=== PATIENT | male | born 1995 | race Caucasian/White ===

== ENCOUNTER 2021-10-10 05:28 | Inpatient (IN) | payer MEDICARE, MEDICAID ==
[~2021-10-10] VITALS: Ht 182.9 cm; Wt 95.4 kg
[~2021-10-10 05:28] MED LIST: RINGERS SOLUTION,LACTATED 1,000 ML IV ONE
[2021-10-10] MEDS ORDERED: RINGERS SOLUTION,LACTATED 1,000 ML IV ONE (05:30)
[2021-10-10 05:46] LABS: COVID AG,FIA SOURCE NASAL SWAB
[2021-10-10] MEDS ORDERED: BUPIVACAINE LIPOSOME/PF 1.3%-13.3MG/ML SUSPENSION 20 ML VIAL INJ ONE (06:00)
[2021-10-10] MEDS ORDERED: MICROFIBRILLAR COLLAGEN 1 GM PACKAGE TP ONE (06:03)
[2021-10-10] MEDS ORDERED: BUPIVACAINE HCL/PF 0.25% 30 ML VIAL ONE (06:03)
[2021-10-10] MEDS ORDERED: SODIUM CHLORIDE 0.9% 1,000 ML ONE (06:03)
[2021-10-10] MEDS ORDERED: MUPIROCIN CALCIUM 2% 22 GM OINTMENT ONE (06:03)
[2021-10-10 06:13] LABS: GLUCOMETER DEV NAME(LOC) SDS.; GLUCOSE,POINT OF CARE 193 MG/DL (70-110)
[2021-10-10 06:15] LABS: BASOPHILS % (AUTO) 0.8 % (0.0-2.0); HEMATOCRIT 49.8 % (41-53); HEMOGLOBIN 16.6 g/dL (13.5-17.5); LYMPHOCYTES # (AUTO) 3.3 K/uL (1.0-4.8); LYMPHOCYTES % (AUTO) 33.3 % (22.0-44.0); MEAN CORPUSCULAR HGB CONC 33.3 G/dL (31.0-37.0); MEAN CORPUSCULAR VOLUME 93 fL (80-100); MONOCYTES # (AUTO) 1.1 K/uL (0.1-1.0); MONOCYTES % (AUTO) 11.1 % (2.0-9.0); NEUTROPHILS # (AUTO) 5.2 K/uL (1.8-7.7); NEUTROPHILS % (AUTO) 51.8 % (40.0-70.0); RED BLOOD CELL COUNT(AUTO) 5.36 MIL/uL (4.50-5.90); RED CELL DISTRIBUTION WIDTH 14.1 % (11.5-14.5)
[2021-10-10 06:24] LABS: ANION GAP 8 mmol/L (8-16); CALCIUM, TOTAL 9.4 mg/dL (8.8-10.5); CARBON DIOXIDE 28 mmol/L (22-29); CHLORIDE 103 mmol/L (98-107); CREATININE 0.77 mg/dL (0.60-1.30); GLOMERULAR FILTR. RATE CALC > 60 mL/min (>60); GLUCOSE,RANDOM 227 mg/dL (70-110); SODIUM SERUM 139 mmol/L (136-145); UREA NITROGEN, BLOOD 20 mg/dL (7-18)
[2021-10-10] MEDS ORDERED: PIOG30TA10 PO (06:27)
[2021-10-10] MEDS ORDERED: PANT-31 PO (06:27)
[2021-10-10] MEDS ORDERED: GABA-1181 PO (06:27)
[2021-10-10] MEDS ORDERED: TRAZ-252 PO (06:27)
[2021-10-10] MEDS ORDERED: BACL10TA PO (06:27)
[2021-10-10 06:29] LABS: ALANINE AMINOTRANSFERASE 162 U/L (12-78); ALBUMIN 3.5 g/dL (3.4-5.0); ALKALINE PHOSPHATASE 104 U/L (46-116); ASPARTATE AMINOTRANSFERASE 59 U/L (15-37); BILIRUBIN,TOTAL 0.3 mg/dL (0.1-1.0); TOTAL PROTEIN, SERUM 8.6 g/dL (6.4-8.2)
[2021-10-10] MEDS ORDERED: IOHEXOL 240 MG/ML 20 ML VIAL ONE (06:37)
[2021-10-10] MEDS ORDERED: MINERAL OIL/PETROLATUM,WHITE PF 3.5 GM OPHTHALMIC OINTMENT ONE (06:40)
[2021-10-10 06:42] LABS: INR 1.1 (0.9-1.1); PROTHROMBIN TIME 11.9 SEC (9.4-11.6)
[2021-10-10 06:44] LABS: PLATELET COUNT (AUTO) 348 K/uL (150-450)
[2021-10-10] MEDS ORDERED: VANCOMYCIN HCL 1 GM/VIAL ONE ×3 (06:48→07:03)
[2021-10-10] MEDS ORDERED: SODIUM CL IRRIG SOLN BAG 3,000 ML IRRIG ONE (06:48)
[2021-10-10] MEDS ORDERED: LIDOCAINE ID ONE (07:00)
[2021-10-10] MEDS ORDERED: CeFAZolin 2 GM/DEXTROSE 50 ML IV ONE (07:00)
[2021-10-10] MEDS ORDERED: [UNRECOGNIZED DRUG - OTHER] ID ONE (07:00)
[2021-10-10] MEDS ORDERED: FentaNYL CITRATE PF 100 MCG/2 ML VIAL IVP PRN (08:45)
[2021-10-10] MEDS ORDERED: HYDROmorphone 2 MG/ML VIAL IVP PRN (08:45)
[2021-10-10] MEDS ORDERED: MEPERIDINE-PF 25 MG/ML VIAL IVP PRN (08:45)
[2021-10-10] MEDS ORDERED: INSU200I4 SQ (11:04)
[2021-10-10] MEDS ORDERED: INSU100I3 SQ (11:04)
[2021-10-10] MEDS ORDERED: LEVE500T20 PO (11:04)
[2021-10-10] MEDS ORDERED: HYDROmorphone 2 MG/ML VIAL IVP ONE (12:00)
[2021-10-10] MEDS ORDERED: 0.9% SODIUM CHLORIDE 10 ML VIAL IVP ONE (12:00)
[2021-10-10] MEDS ORDERED: KETOROLAC TROMETHAMINE 60 MG/2 ML VIAL IM ONE (12:00)
[2021-10-10] MEDS ORDERED: PROPOFOL 1% 20 ML VIAL IVP ONE (12:00)
[2021-10-10] MEDS ORDERED: FentaNYL CITRATE PF 100 MCG/2 ML VIAL IVP ONE (12:00)
[2021-10-10] MEDS ORDERED: DEXAMETHASONE SOD PHOS 4 MG/ML VIAL IVP ONE (12:00)
[2021-10-10] MEDS ORDERED: MIDAZOLAM HCL 2 MG/2 ML VIAL IVP ONE (12:00)
[2021-10-10] MEDS ORDERED: ONDANSETRON HCL 4 MG/2 ML VIAL IVP ONE (12:00)
[2021-10-10] MEDS ORDERED: ROCURONIUM BROMIDE 10 MG/ML 5 ML VIAL IVP ONE (12:00)
[2021-10-10] MEDS ORDERED: LIDOCAINE/PF 2% 5 ML VIAL IM ONE (12:00)
[2021-10-10] MEDS ORDERED: DEXTROSE 50%-WATER 25 GM/50 ML SYRINGE IVP PRN (12:15)
[2021-10-10] MEDS ORDERED: MAGNESIUM HYDROXIDE SUSPENSION 30 ML UDCUP PO PRN (12:15)
[2021-10-10] MEDS ORDERED: ONDANSETRON HCL 4 MG/2 ML VIAL IVP PRN (12:15)
[2021-10-10 13:00] VITALS: BP 124/90
[2021-10-10 14:26] LABS: GLUCOMETER DEV NAME(LOC) 6N.1; GLUCOSE,POINT OF CARE 191 MG/DL (70-110)
[2021-10-10 16:00] VITALS: BP 122/64
[2021-10-10] MEDS ORDERED: GABAPENTIN 300 MG CAPSULE PO SCH (16:00)
[2021-10-10] MEDS: CeFAZolin 2 GM/DEXTROSE 50 ML IV SCH ×2 (16:22→23:11)
[2021-10-10] MEDS: INSULIN LISPRO 100 UNITS/ML SQ PRN ×2 (17:34→20:43)
[2021-10-10] MEDS: OxyCODONE HCL/ACETAMINOPHEN 5-325 MG TABLET PO PRN (18:40)
[2021-10-10] MEDS: OXYGEN THERAPY IH SCH (20:00)
[2021-10-10 20:11] VITALS: BP 116/69
[2021-10-10] MEDS: DOCUSATE SODIUM 100 MG CAPSULE PO SCH (20:29)
[2021-10-10] MEDS: TraZODone HCL 50 MG TABLET PO PRN (20:29)
[2021-10-10] MEDS: LevETIRAcetam 500 MG TABLET PO SCH (20:29)
[2021-10-10] MEDS: BACLOFEN 10 MG TABLET PO SCH (20:30)
[2021-10-10] MEDS: GABAPENTIN 300 MG CAPSULE PO SCH (20:30)
[2021-10-10 20:31] LABS: GLUCOMETER DEV NAME(LOC) 6N.1; GLUCOSE,POINT OF CARE 243 MG/DL (70-110)
[2021-10-10 20:31] LABS: GLUCOMETER DEV NAME(LOC) 6N.1; GLUCOSE,POINT OF CARE 242 MG/DL (70-110)
[2021-10-10] MEDS: INSULIN DEGLUDEC 200 UNIT/ML SQ SCH (20:31)
[2021-10-11 04:58] VITALS: BP 116/67
[2021-10-11 05:41] LABS: GLUCOMETER DEV NAME(LOC) 6N.1; GLUCOSE,POINT OF CARE 194 MG/DL (70-110)
[2021-10-11] MEDS: INSULIN LISPRO 100 UNITS/ML SQ PRN ×4 (05:59→20:34)
[2021-10-11] MEDS: CeFAZolin 2 GM/DEXTROSE 50 ML IV SCH ×3 (06:38→23:04)
[2021-10-11] MEDS: OxyCODONE HCL/ACETAMINOPHEN 5-325 MG TABLET PO PRN ×3 (06:59→20:08)
[2021-10-11 08:00] VITALS: BP 124/69
[2021-10-11] MEDS: LevETIRAcetam 500 MG TABLET PO SCH ×2 (08:11→20:03)
[2021-10-11] MEDS: ENOXAPARIN SODIUM 40 MG/0.4 ML PF SYRINGE SQ SCH (08:11)
[2021-10-11] MEDS: BACLOFEN 10 MG TABLET PO SCH ×3 (08:11→20:03)
[2021-10-11] MEDS: DOCUSATE SODIUM 100 MG CAPSULE PO SCH ×2 (08:12→20:03)
[2021-10-11] MEDS: FAMOTIDINE 20 MG TABLET PO SCH (08:12)
[2021-10-11] MEDS: GABAPENTIN 300 MG CAPSULE PO SCH ×3 (08:12→20:03)
[2021-10-11] MEDS: OXYGEN THERAPY IH SCH (08:12)
[2021-10-11] MEDS: INSULIN DEGLUDEC 200 UNIT/ML SQ SCH ×2 (08:21→20:34)
[2021-10-11] MEDS: ACETAMINOPHEN 325 MG TABLET PO PRN (08:53)
[2021-10-11] MEDS ORDERED: MORPHINE SULFATE 2 MG/ML SYRINGE IVP PRN (11:00)
[2021-10-11 15:48] VITALS: BP 128/76
[2021-10-11] MEDS ORDERED: GABAPENTIN 300 MG CAPSULE PO SCH (16:00)
[2021-10-11] MEDS ORDERED: BACLOFEN 10 MG TABLET PO SCH (16:00)
[2021-10-11 18:45] LABS: GLUCOMETER DEV NAME(LOC) 6N.2; GLUCOSE,POINT OF CARE 268 MG/DL (70-110)
[2021-10-11] MEDS: TraZODone HCL 50 MG TABLET PO PRN (20:08)
[2021-10-11 20:47] VITALS: BP 141/74
[2021-10-11 21:40] LABS: GLUCOMETER DEV NAME(LOC) 6N.1; GLUCOSE,POINT OF CARE 289 MG/DL (70-110)
[2021-10-12] MEDS ORDERED: SODIUM CHLORIDE 0.9% 500 ML IV ONE (02:28)
[2021-10-12 04:53] VITALS: BP 130/67
[2021-10-12] MEDS: CeFAZolin 2 GM/DEXTROSE 50 ML IV SCH (06:26)
[2021-10-12] MEDS: INSULIN LISPRO 100 UNITS/ML SQ PRN ×4 (06:31→21:07)
[2021-10-12 07:06] LABS: GLUCOMETER DEV NAME(LOC) 6N.1; GLUCOSE,POINT OF CARE 200 MG/DL (70-110)
[2021-10-12 07:11] LABS: EOSINOPHILS % (AUTO) 4.2 % (1.0-6.0); HEMATOCRIT 43.3 % (41-53); HEMOGLOBIN 14.5 g/dL (13.5-17.5); LYMPHOCYTES # (AUTO) 3.1 K/uL (1.0-4.8); LYMPHOCYTES % (AUTO) 22.4 % (22.0-44.0); MEAN CORPUSCULAR HEMOGLOBIN 30.8 pg (26.0-34.0); MEAN CORPUSCULAR HGB CONC 33.4 G/dL (31.0-37.0); MEAN CORPUSCULAR VOLUME 92 fL (80-100); MONOCYTES # (AUTO) 2.6 K/uL (0.1-1.0); MONOCYTES % (AUTO) 19.2 % (2.0-9.0); NEUTROPHILS # (AUTO) 7.3 K/uL (1.8-7.7); NEUTROPHILS % (AUTO) 53.2 % (40.0-70.0); PLATELET COUNT (AUTO) 375 K/uL (150-450); RED BLOOD CELL COUNT(AUTO) 4.69 MIL/uL (4.50-5.90); RED CELL DISTRIBUTION WIDTH 13.7 % (11.5-14.5)
[2021-10-12 07:18] LABS: ANION GAP 8 mmol/L (8-16); CALCIUM, TOTAL 8.8 mg/dL (8.8-10.5); CARBON DIOXIDE 29 mmol/L (22-29); CHLORIDE 102 mmol/L (98-107); CREATININE 0.69 mg/dL (0.60-1.30); GLOMERULAR FILTR. RATE CALC > 60 mL/min (>60); GLUCOSE,RANDOM 213 mg/dL (70-110); POTASSIUM 3.9 mmol/L (3.5-5.1); SODIUM SERUM 139 mmol/L (136-145); UREA NITROGEN, BLOOD 15 mg/dL (7-18)
[2021-10-12] MEDS: INSULIN DEGLUDEC 200 UNIT/ML SQ SCH ×2 (08:25→20:54)
[2021-10-12] MEDS: GABAPENTIN 300 MG CAPSULE PO SCH ×3 (08:26→20:35)
[2021-10-12] MEDS: PIOGLITAZONE HCL 30 MG TABLET PO SCH (08:26)
[2021-10-12] MEDS: BACLOFEN 10 MG TABLET PO SCH ×3 (08:26→20:35)
[2021-10-12] MEDS: DOCUSATE SODIUM 100 MG CAPSULE PO SCH ×2 (08:27→20:35)
[2021-10-12] MEDS: TraZODone HCL 50 MG TABLET PO SCH (08:27)
[2021-10-12] MEDS: FAMOTIDINE 20 MG TABLET PO SCH (08:27)
[2021-10-12] MEDS: LevETIRAcetam 500 MG TABLET PO SCH ×2 (08:27→20:35)
[2021-10-12] MEDS: PANTOPRAZOLE SODIUM 40 MG DR TABLET PO SCH (08:28)
[2021-10-12] MEDS: ENOXAPARIN SODIUM 40 MG/0.4 ML PF SYRINGE SQ SCH (08:28)
[2021-10-12] MEDS: ACETAMINOPHEN 325 MG TABLET PO PRN (08:30)
[2021-10-12] MEDS: OXYGEN THERAPY IH SCH ×2 (08:52→20:00)
[2021-10-12 10:00] VITALS: BP 127/76
[2021-10-12] MEDS ORDERED: HYDROmorphone HCL 2 MG TABLET PO PRN (10:15)
[2021-10-12 15:26] LABS: GLUCOMETER DEV NAME(LOC) 6N.2; GLUCOSE,POINT OF CARE 290 MG/DL (70-110)
[2021-10-12 17:00] VITALS: BP 120/80
[2021-10-12 19:45] VITALS: BP 127/83
[2021-10-12] MEDS: ETHYL ALCOHOL 62% ANTISEPTIC NASAL SANITIZER 0.6 ML AMPUL NASAL SCH (20:35)
[2021-10-12] MEDS: TraZODone HCL 50 MG TABLET PO PRN (22:10)
[2021-10-13 00:07] LABS: GLUCOMETER DEV NAME(LOC) 6N.1; GLUCOSE,POINT OF CARE 212 MG/DL (70-110)
[2021-10-13 00:07] LABS: GLUCOMETER DEV NAME(LOC) 6N.2; GLUCOSE,POINT OF CARE 292 MG/DL (70-110)
[2021-10-13 05:01] VITALS: BP 125/70
[2021-10-13] MEDS: INSULIN LISPRO 100 UNITS/ML SQ PRN (06:19)
[2021-10-13 06:36] LABS: GLUCOMETER DEV NAME(LOC) 6N.1; GLUCOSE,POINT OF CARE 220 MG/DL (70-110)
[2021-10-13 07:59] VITALS: BP 124/86
[2021-10-13] MEDS: OXYGEN THERAPY IH SCH (08:00)
[2021-10-13] MEDS: ENOXAPARIN SODIUM 40 MG/0.4 ML PF SYRINGE SQ SCH (08:28)
[2021-10-13] MEDS: PIOGLITAZONE HCL 30 MG TABLET PO SCH (08:29)
[2021-10-13] MEDS: PANTOPRAZOLE SODIUM 40 MG DR TABLET PO SCH (08:29)
[2021-10-13] MEDS: TraZODone HCL 50 MG TABLET PO SCH (08:29)
[2021-10-13] MEDS: LevETIRAcetam 500 MG TABLET PO SCH (08:29)
[2021-10-13] MEDS: BACLOFEN 10 MG TABLET PO SCH (08:29)
[2021-10-13] MEDS: ETHYL ALCOHOL 62% ANTISEPTIC NASAL SANITIZER 0.6 ML AMPUL NASAL SCH (08:29)
[2021-10-13] MEDS: FAMOTIDINE 20 MG TABLET PO SCH (08:29)
[2021-10-13] MEDS: GABAPENTIN 300 MG CAPSULE PO SCH (08:29)
[2021-10-13] MEDS: DOCUSATE SODIUM 100 MG CAPSULE PO SCH (08:30)
[2021-10-13] MEDS: INSULIN DEGLUDEC 200 UNIT/ML SQ SCH (08:32)
[2021-10-13] MEDS ORDERED: HYDR2TAB37 PO ×2 (08:44→09:20)
[2021-10-13] MEDS ORDERED: ENOX40SY14 SQ (08:44)
[2021-10-13] MEDS: ACETAMINOPHEN 325 MG TABLET PO PRN (09:59)
== END 2021-10-13 10:05 | disposition home health service (06) | DRG 500 ==
LOC: SURGERY 05:28 → 6N 12:30
PROVIDERS: ADMIT Orthopaedic Surgery; ATTEND Orthopaedic Surgery
PROC: 0LSP0ZZ Reposition Left Lower Leg Tendon, Open Approach (ICD-10-PCS; 2021-10-10)
PROC: 0SGN0JZ Fusion of Left Metatarsal-Phalangeal Joint with Synthetic Substitute, Open Approach (ICD-10-PCS; 2021-10-10)
PROC: 0LXW0ZZ Transfer Left Foot Tendon, Open Approach (ICD-10-PCS; 2021-10-10)
PROC: 0LXP0ZZ Transfer Left Lower Leg Tendon, Open Approach (ICD-10-PCS; 2021-10-10)
PROC: 0LXP0ZZ Transfer Left Lower Leg Tendon, Open Approach (ICD-10-PCS; 2021-10-10)
PROC: 0LNP0ZZ Release Left Lower Leg Tendon, Open Approach (ICD-10-PCS; 2021-10-10)
PROC: 0SNN0ZZ Release Left Metatarsal-Phalangeal Joint, Open Approach (ICD-10-PCS; 2021-10-10)
PROC: 0L8P0ZZ Division of Left Lower Leg Tendon, Open Approach (ICD-10-PCS; principal; 2021-10-10 07:20)
DX: M24.572 Contracture, left ankle (principal); G82.50 Quadriplegia, unspecified; G89.29 Other chronic pain; E11.9 Type 2 diabetes mellitus without complications; G40.909 Epilepsy, unspecified, not intractable, without status epilepticus; Z20.822 Contact with and (suspected) exposure to COVID-19; Z79.4 Long term (current) use of insulin; Z79.84 Long term (current) use of oral hypoglycemic drugs; Z79.899 Other long term (current) drug therapy
CPT/HCPCS: 80048; 80053; 82962; 85025; 85610; 85730; 87081; 93005; 97162; 97167; 97530; 97535; C9290; G0238; J0690; J1100; J1170; J1650; J1885; J2250; J2405; J2704; J3010; J3370; J3490; J7030; J7040; J7120; Q9966; Q9967

== ENCOUNTER 2021-12-06 07:30 | Inpatient (IN) | payer MEDICARE, MEDICAID ==
[~2021-12-06] VITALS: Ht 182.9 cm; Wt 119.2 kg
[~2021-12-06 07:30] MED LIST changes: +BACL10TA PO; +ENOX40SY14 SQ; +GABA-1181 PO; +HYDR2TAB37 PO; +INSU100I3 SQ; +INSU200I4 SQ; +LEVE500T20 PO; +PANT-31 PO; +PIOG30TA10 PO; -RINGERS SOLUTION,LACTATED 1,000 ML IV ONE; +TRAZ-252 PO
[2022-01-09] MEDS ORDERED: RINGERS SOLUTION,LACTATED 1,000 ML IV ONE ×2 (05:00→05:36)
[2022-01-09] MEDS ORDERED: CeFAZolin 2 GM/DEXTROSE 50 ML IV ONE (05:42)
[2022-01-09 05:52] LABS: COVID AG,FIA SOURCE NASOPHARYNGEAL
[2022-01-09] MEDS ORDERED: SODIUM CL IRRIG SOLN BAG 3,000 ML IRRIG ONE (05:59)
[2022-01-09] MEDS ORDERED: GELATIN SPONGE,ABSORBABLE 50 MM TP ONE (06:00)
[2022-01-09] MEDS ORDERED: BUPIVACAINE LIPOSOME/PF 1.3%-13.3MG/ML SUSPENSION 20 ML VIAL INJ ONE (06:00)
[2022-01-09] MEDS ORDERED: VANCOMYCIN HCL 1 GM/VIAL ONE (06:00)
[2022-01-09] MEDS ORDERED: BUPIVACAINE HCL/PF 0.25% 30 ML VIAL ONE (06:01)
[2022-01-09 06:30] LABS: BASOPHILS % (AUTO) 1.3 % (0.0-2.0); EOSINOPHILS % (AUTO) 2.1 % (1.0-6.0); HEMATOCRIT 43.7 % (41-53); HEMOGLOBIN 14.6 g/dL (13.5-17.5); LYMPHOCYTES # (AUTO) 3.4 K/uL (1.0-4.8); LYMPHOCYTES % (AUTO) 34.4 % (22.0-44.0); MEAN CORPUSCULAR HEMOGLOBIN 30.7 pg (26.0-34.0); MEAN CORPUSCULAR HGB CONC 33.5 G/dL (31.0-37.0); MEAN CORPUSCULAR VOLUME 92 fL (80-100); MONOCYTES # (AUTO) 1.2 K/uL (0.1-1.0); MONOCYTES % (AUTO) 12.5 % (2.0-9.0); NEUTROPHILS # (AUTO) 4.9 K/uL (1.8-7.7); NEUTROPHILS % (AUTO) 49.7 % (40.0-70.0); PLATELET COUNT (AUTO) 431 K/uL (150-450); RED BLOOD CELL COUNT(AUTO) 4.77 MIL/uL (4.50-5.90); RED CELL DISTRIBUTION WIDTH 14.8 % (11.5-14.5)
[2022-01-09 06:50] LABS: ANION GAP 10 mmol/L (8-16); CALCIUM, TOTAL 9.4 mg/dL (8.8-10.5); CARBON DIOXIDE 26 mmol/L (22-29); CHLORIDE 101 mmol/L (98-107); CREATININE 0.75 mg/dL (0.60-1.30); GLUCOSE,RANDOM 267 mg/dL (70-110); POTASSIUM 4.4 mmol/L (3.5-5.1); SODIUM SERUM 137 mmol/L (136-145); UREA NITROGEN, BLOOD 17 mg/dL (7-18)
[2022-01-09 06:52] LABS: GLOMERULAR FILTR. RATE CALC > 60 mL/min (>60)
[2022-01-09 06:55] LABS: INR 1.1 (0.9-1.1); PROTHROMBIN TIME 11.6 SEC (9.4-11.6)
[2022-01-09 06:56] LABS: GLUCOMETER DEV NAME(LOC) SDS.; GLUCOSE,POINT OF CARE 262 MG/DL (70-110)
[2022-01-09] MEDS: VANCOMYCIN HCL 1 GM/VIAL ONE ×2 (08:08→12:26)
[2022-01-09] MEDS ORDERED: MUPIROCIN CALCIUM 2% 22 GM OINTMENT ONE (09:12)
[2022-01-09] MEDS ORDERED: FentaNYL CITRATE PF 100 MCG/2 ML VIAL IVP PRN (10:45)
[2022-01-09] MEDS ORDERED: HYDROmorphone 2 MG/ML VIAL IVP PRN (10:45)
[2022-01-09] MEDS ORDERED: FentaNYL CITRATE PF 100 MCG/2 ML VIAL ONE (10:53)
[2022-01-09] MEDS ORDERED: ONDANSETRON HCL 4 MG/2 ML VIAL IVP PRN (11:15)
[2022-01-09] MEDS ORDERED: DEXTROSE 50%-WATER 25 GM/50 ML SYRINGE IVP PRN (11:15)
[2022-01-09 11:51] VITALS: BP 143/104
[2022-01-09] MEDS ORDERED: HYDROCODONE/ACETAMINOPHEN 5-325 MG TABLET PO PRN (12:15)
[2022-01-09] MEDS: HYDROCODONE/ACETAMINOPHEN 5-325 MG TABLET PO PRN ×2 (12:48→20:15)
[2022-01-09] MEDS: INSULIN LISPRO 100 UNITS/ML SQ PRN ×2 (12:52→20:23)
[2022-01-09] MEDS ORDERED: *NON-FORMULARY MED [ENTER DRUG, DOSE, FREQ IN COMMENTS] CLINICAL ONE (13:00)
[2022-01-09] MEDS ORDERED: SODIUM CHLORIDE 0.9% 250 ML IV ONE (14:52)
[2022-01-09 16:01] VITALS: BP 134/68
[2022-01-09] MEDS: CeFAZolin 1 GM/DEXTROSE 50 ML IV SCH (16:17)
[2022-01-09] MEDS: MORPHINE SULFATE 2 MG/ML SYRINGE IVP PRN (17:00)
[2022-01-09] MEDS: DOCUSATE SODIUM 100 MG CAPSULE PO SCH (20:14)
[2022-01-09] MEDS: FAMOTIDINE 20 MG TABLET PO SCH (20:14)
[2022-01-09] MEDS: INSULIN DEGLUDEC 200 UNIT/ML SQ SCH (20:14)
[2022-01-09 20:52] VITALS: BP 141/87
[2022-01-09] MEDS: GABAPENTIN 300 MG CAPSULE PO SCH (22:47)
[2022-01-09] MEDS: BACLOFEN 10 MG TABLET PO SCH (22:47)
[2022-01-09] MEDS: TraZODone HCL 100 MG TABLET PO SCH (22:47)
[2022-01-09] MEDS: LevETIRAcetam 500 MG TABLET PO SCH (22:47)
[2022-01-10 00:02] VITALS: BP 135/78
[2022-01-10] MEDS: MORPHINE SULFATE 2 MG/ML SYRINGE IVP PRN ×3 (00:02→08:55)
[2022-01-10] MEDS: CeFAZolin 1 GM/DEXTROSE 50 ML IV SCH ×4 (00:02→23:09)
[2022-01-10] MEDS: OXYGEN THERAPY IH SCH ×3 (05:10→20:24)
[2022-01-10 05:16] VITALS: BP 127/88
[2022-01-10] MEDS ORDERED: HYDROmorphone 2 MG/ML VIAL IVP ONE (06:09)
[2022-01-10] MEDS ORDERED: LIDOCAINE/PF 2% 5 ML VIAL IM ONE (06:09)
[2022-01-10] MEDS ORDERED: ROCURONIUM BROMIDE 10 MG/ML 5 ML VIAL IVP ONE (06:09)
[2022-01-10] MEDS ORDERED: MIDAZOLAM HCL 2 MG/2 ML VIAL IVP ONE (06:09)
[2022-01-10] MEDS ORDERED: FentaNYL CITRATE PF 100 MCG/2 ML VIAL IVP ONE (06:09)
[2022-01-10] MEDS ORDERED: ONDANSETRON HCL 4 MG/2 ML VIAL IVP ONE (06:09)
[2022-01-10] MEDS ORDERED: PROPOFOL 1% 20 ML VIAL IVP ONE (06:09)
[2022-01-10] MEDS: INSULIN LISPRO 100 UNITS/ML SQ PRN ×3 (07:01→17:41)
[2022-01-10 08:11] VITALS: BP 129/57
[2022-01-10 08:46] LABS: GLUCOMETER DEV NAME(LOC) 6N.1; GLUCOSE,POINT OF CARE 187 MG/DL (70-110)
[2022-01-10] MEDS: FAMOTIDINE 20 MG TABLET PO SCH ×2 (08:50→21:41)
[2022-01-10] MEDS: GABAPENTIN 300 MG CAPSULE PO SCH ×3 (08:50→21:41)
[2022-01-10] MEDS: ENOXAPARIN SODIUM 40 MG/0.4 ML PF SYRINGE SQ SCH (08:50)
[2022-01-10] MEDS: DOCUSATE SODIUM 100 MG CAPSULE PO SCH ×2 (08:50→21:41)
[2022-01-10] MEDS: LevETIRAcetam 500 MG TABLET PO SCH ×2 (08:50→21:41)
[2022-01-10] MEDS: BACLOFEN 10 MG TABLET PO SCH ×3 (08:50→21:41)
[2022-01-10] MEDS: INSULIN DEGLUDEC 200 UNIT/ML SQ SCH ×2 (08:51→21:41)
[2022-01-10] MEDS ORDERED: GABAPENTIN 300 MG CAPSULE PO SCH (09:00)
[2022-01-10] MEDS ORDERED: BACLOFEN 10 MG TABLET PO SCH (09:00)
[2022-01-10] MEDS: PIOGLITAZONE HCL 30 MG TABLET PO SCH (12:03)
[2022-01-10] MEDS: HYDROCODONE/ACETAMINOPHEN 5-325 MG TABLET PO PRN (12:46)
[2022-01-10 13:20] LABS: GLUCOMETER DEV NAME(LOC) 6N.1; GLUCOSE,POINT OF CARE 246 MG/DL (70-110)
[2022-01-10] MEDS ORDERED: INSULIN LISPRO 100 UNITS/ML SQ ONE (14:15)
[2022-01-10 15:45] VITALS: BP 126/87
[2022-01-10] MEDS: ACETAMINOPHEN 325 MG TABLET PO PRN (16:09)
[2022-01-10] MEDS ORDERED: SODIUM CHLORIDE 0.9% 500 ML IV ONE (16:12)
[2022-01-10] MEDS: SODIUM CHLORIDE 0.9% 1,000 ML IV SCH (16:55)
[2022-01-10] MEDS ORDERED: VANCOMYCIN HCL 1.5 GM in DEXTROSE 5%-WATER 250 ML IV ONE (17:00)
[2022-01-10 17:24] LABS: COVID AG,FIA SOURCE NASAL SWAB
[2022-01-10 17:54] LABS: INFLUENZA TYPE A NEGATIVE FOR TYPE A (NEGATIVE); INFLUENZA TYPE B NEGATIVE FOR TYPE B (NEGATIVE)
[2022-01-10 18:51] LABS: GLUCOMETER DEV NAME(LOC) 6N.1; GLUCOSE,POINT OF CARE 356 MG/DL (70-110)
[2022-01-10 18:51] LABS: GLUCOMETER DEV NAME(LOC) 6N.2; GLUCOSE,POINT OF CARE 193 MG/DL (70-110)
[2022-01-10 19:28] LABS: APPEARANCE,URINE CLEAR (CLEAR); BILIRUBIN,URINE NEGATIVE (NEGATIVE); GLUCOSE, URINE (UA) >=1000 mg/dL (NEGATIVE); KETONES,URINE NEGATIVE (NEGATIVE); LEUKOCYTE ESTERASE ,URINE NEGATIVE (NEGATIVE); NITRATE,URINE NEGATIVE (NEGATIVE); OCCULT BLOOD,URINE NEGATIVE (NEGATIVE); PH,URINE 6.5 (5.0-8.0); PROTEIN,URINE TRACE mg/dL (NEGATIVE); SPECIFIC GRAVITIY, URINE 1.014 (1.003-1.030); UROBILINOGEN,URINE <=1.0 mg/dL (<=1.0)
[2022-01-10 20:25] LABS: BACTERIA,URINE None Seen /HPF (None Seen); RBC,URINE 0-2 /HPF (0-2); WBC,URINE 0-2 /HPF (0-5)
[2022-01-10 20:56] VITALS: BP 118/73
[2022-01-10 21:36] LABS: GLUCOMETER DEV NAME(LOC) 6N.2; GLUCOSE,POINT OF CARE 226 MG/DL (70-110)
[2022-01-10] MEDS: TraZODone HCL 100 MG TABLET PO SCH (21:41)
[2022-01-11] MEDS: VANCOMYCIN HCL 1.5 GM in DEXTROSE 5%-WATER 250 ML IV SCH ×3 (00:39→16:13)
[2022-01-11] MEDS: SODIUM CHLORIDE 0.9% 1,000 ML IV SCH ×4 (00:40→23:36)
[2022-01-11] MEDS: MORPHINE SULFATE 2 MG/ML SYRINGE IVP PRN ×2 (02:41→08:52)
[2022-01-11] MEDS: HYDROCODONE/ACETAMINOPHEN 5-325 MG TABLET PO PRN ×2 (04:42→15:49)
[2022-01-11 05:29] VITALS: BP 144/91
[2022-01-11 07:01] LABS: GLUCOMETER DEV NAME(LOC) 6N.2; GLUCOSE,POINT OF CARE 138 MG/DL (70-110)
[2022-01-11 07:26] VITALS: BP 124/83
[2022-01-11] MEDS: PIOGLITAZONE HCL 30 MG TABLET PO SCH (08:47)
[2022-01-11] MEDS: GABAPENTIN 300 MG CAPSULE PO SCH ×3 (08:47→21:00)
[2022-01-11] MEDS: LevETIRAcetam 500 MG TABLET PO SCH ×2 (08:48→21:00)
[2022-01-11] MEDS: DOCUSATE SODIUM 100 MG CAPSULE PO SCH ×2 (08:48→21:00)
[2022-01-11] MEDS: FAMOTIDINE 20 MG TABLET PO SCH ×2 (08:48→21:01)
[2022-01-11] MEDS: SULFAMETHOX/TRIMETH DS 800-160 MG/TABLET PO SCH ×2 (08:48→21:00)
[2022-01-11] MEDS: ENOXAPARIN SODIUM 40 MG/0.4 ML PF SYRINGE SQ SCH (08:49)
[2022-01-11] MEDS: INSULIN DEGLUDEC 200 UNIT/ML SQ SCH ×2 (08:50→21:03)
[2022-01-11] MEDS ORDERED: SULFAMETHOX/TRIMETH DS 800-160 MG/TABLET PO SCH (09:00)
[2022-01-11 09:05] LABS: BASOPHILS % (AUTO) 0.8 % (0.0-2.0); EOSINOPHILS % (AUTO) 1.2 % (1.0-6.0); HEMATOCRIT 38.3 % (41-53); HEMOGLOBIN 12.9 g/dL (13.5-17.5); LYMPHOCYTES # (AUTO) 3.3 K/uL (1.0-4.8); LYMPHOCYTES % (AUTO) 23.3 % (22.0-44.0); MEAN CORPUSCULAR HEMOGLOBIN 30.6 pg (26.0-34.0); MEAN CORPUSCULAR HGB CONC 33.7 G/dL (31.0-37.0); MEAN CORPUSCULAR VOLUME 91 fL (80-100); MONOCYTES # (AUTO) 2.9 K/uL (0.1-1.0); MONOCYTES % (AUTO) 20.2 % (2.0-9.0); NEUTROPHILS # (AUTO) 7.7 K/uL (1.8-7.7); NEUTROPHILS % (AUTO) 54.5 % (40.0-70.0); PLATELET COUNT (AUTO) 347 K/uL (150-450); RED BLOOD CELL COUNT(AUTO) 4.22 MIL/uL (4.50-5.90); RED CELL DISTRIBUTION WIDTH 14.4 % (11.5-14.5)
[2022-01-11 09:19] LABS: ANION GAP 9 mmol/L (8-16); CALCIUM, TOTAL 9.1 mg/dL (8.8-10.5); CARBON DIOXIDE 30 mmol/L (22-29); CHLORIDE 102 mmol/L (98-107); CREATININE 0.55 mg/dL (0.60-1.30); GLUCOSE,RANDOM 99 mg/dL (70-110); POTASSIUM 3.6 mmol/L (3.5-5.1); SODIUM SERUM 141 mmol/L (136-145); UREA NITROGEN, BLOOD 8 mg/dL (7-18)
[2022-01-11] MEDS: BACLOFEN 10 MG TABLET PO SCH ×3 (09:19→21:01)
[2022-01-11 09:20] LABS: GLOMERULAR FILTR. RATE CALC > 60 mL/min (>60)
[2022-01-11] MEDS: OXYGEN THERAPY IH SCH ×3 (09:31→23:35)
[2022-01-11] MEDS: INSULIN LISPRO 100 UNITS/ML SQ PRN ×3 (11:28→21:03)
[2022-01-11] MEDS: CeFAZolin 1 GM/DEXTROSE 50 ML IV SCH (11:31)
[2022-01-11 12:21] LABS: ALANINE AMINOTRANSFERASE 163 U/L (12-78); ALBUMIN 2.8 g/dL (3.4-5.0); ALKALINE PHOSPHATASE 101 U/L (46-116); ASPARTATE AMINOTRANSFERASE 42 U/L (15-37); BILIRUBIN,TOTAL 0.7 mg/dL (0.1-1.0); C-REACTIVE PROTEIN QUANT 19.51 mg/dL (0.00-0.30); FERRITIN 438 ng/mL (26-388); TOTAL PROTEIN, SERUM 7.8 g/dL (6.4-8.2)
[2022-01-11 12:21] LABS: GLUCOMETER DEV NAME(LOC) 6N.1; GLUCOSE,POINT OF CARE 94 MG/DL (70-110)
[2022-01-11 12:22] LABS: GLUCOMETER DEV NAME(LOC) 6N.1; GLUCOSE,POINT OF CARE 239 MG/DL (70-110)
[2022-01-11] MEDS: PIPERACILLIN/TAZO 3.375 GM/D5W 50 ML IV SCH ×3 (14:01→23:36)
[2022-01-11 15:49] VITALS: BP 154/81
[2022-01-11 20:00] VITALS: BP 104/76
[2022-01-11 20:06] LABS: GLUCOMETER DEV NAME(LOC) 6N.2; GLUCOSE,POINT OF CARE 234 MG/DL (70-110)
[2022-01-11] MEDS: TraZODone HCL 100 MG TABLET PO SCH (21:00)
[2022-01-11 22:46] LABS: GLUCOMETER DEV NAME(LOC) 6S.1B; GLUCOSE,POINT OF CARE 224 MG/DL (70-110)
[2022-01-12] MEDS: VANCOMYCIN HCL 1.5 GM in DEXTROSE 5%-WATER 250 ML IV SCH ×2 (00:26→08:59)
[2022-01-12 04:30] VITALS: BP 136/82
[2022-01-12] MEDS: HYDROCODONE/ACETAMINOPHEN 5-325 MG TABLET PO PRN ×3 (05:09→20:31)
[2022-01-12] MEDS: PIPERACILLIN/TAZO 3.375 GM/D5W 50 ML IV SCH ×4 (05:09→23:26)
[2022-01-12] MEDS: MORPHINE SULFATE 2 MG/ML SYRINGE IVP PRN ×4 (06:10→23:26)
[2022-01-12] MEDS: INSULIN LISPRO 100 UNITS/ML SQ PRN ×4 (06:14→20:45)
[2022-01-12 06:58] LABS: BASOPHILS % (AUTO) 0.5 % (0.0-2.0); EOSINOPHILS % (AUTO) 2.3 % (1.0-6.0); HEMATOCRIT 36.7 % (41-53); HEMOGLOBIN 12.5 g/dL (13.5-17.5); LYMPHOCYTES # (AUTO) 2.2 K/uL (1.0-4.8); LYMPHOCYTES % (AUTO) 18.4 % (22.0-44.0); MEAN CORPUSCULAR HEMOGLOBIN 31.1 pg (26.0-34.0); MEAN CORPUSCULAR HGB CONC 33.9 G/dL (31.0-37.0); MEAN CORPUSCULAR VOLUME 92 fL (80-100); MONOCYTES # (AUTO) 2.2 K/uL (0.1-1.0); MONOCYTES % (AUTO) 18.4 % (2.0-9.0); NEUTROPHILS # (AUTO) 7.2 K/uL (1.8-7.7); NEUTROPHILS % (AUTO) 60.4 % (40.0-70.0); PLATELET COUNT (AUTO) 322 K/uL (150-450); RED BLOOD CELL COUNT(AUTO) 4.01 MIL/uL (4.50-5.90); RED CELL DISTRIBUTION WIDTH 14.1 % (11.5-14.5)
[2022-01-12 07:34] LABS: ALANINE AMINOTRANSFERASE 149 U/L (12-78); ALBUMIN 2.7 g/dL (3.4-5.0); ALKALINE PHOSPHATASE 125 U/L (46-116); ANION GAP 9 mmol/L (8-16); ASPARTATE AMINOTRANSFERASE 53 U/L (15-37); BILIRUBIN,TOTAL 0.5 mg/dL (0.1-1.0); C-REACTIVE PROTEIN QUANT 15.68 mg/dL (0.00-0.30); CALCIUM, TOTAL 9.2 mg/dL (8.8-10.5); CARBON DIOXIDE 29 mmol/L (22-29); CHLORIDE 101 mmol/L (98-107); CREATININE 0.73 mg/dL (0.60-1.30); FERRITIN 452 ng/mL (26-388); GLUCOSE,RANDOM 132 mg/dL (70-110); POTASSIUM 3.7 mmol/L (3.5-5.1); SODIUM SERUM 139 mmol/L (136-145); TOTAL PROTEIN, SERUM 7.8 g/dL (6.4-8.2); UREA NITROGEN, BLOOD 10 mg/dL (7-18); VANCOMYCIN,RANDOM 22.2 mcg/mL (25.0-50.0)
[2022-01-12 07:35] LABS: GLOMERULAR FILTR. RATE CALC > 60 mL/min (>60)
[2022-01-12 07:46] LABS: GLUCOMETER DEV NAME(LOC) 6S.1B; GLUCOSE,POINT OF CARE 136 MG/DL (70-110)
[2022-01-12 08:31] VITALS: BP 131/78
[2022-01-12] MEDS: SODIUM CHLORIDE 0.9% 1,000 ML IV SCH ×2 (08:59→16:45)
[2022-01-12] MEDS: OXYGEN THERAPY IH SCH ×2 (09:09→20:36)
[2022-01-12] MEDS: SULFAMETHOX/TRIMETH DS 800-160 MG/TABLET PO SCH ×2 (09:09→20:31)
[2022-01-12] MEDS: GABAPENTIN 300 MG CAPSULE PO SCH ×3 (09:09→20:32)
[2022-01-12] MEDS: LevETIRAcetam 500 MG TABLET PO SCH ×2 (09:09→20:31)
[2022-01-12] MEDS: PIOGLITAZONE HCL 30 MG TABLET PO SCH (09:10)
[2022-01-12] MEDS: BACLOFEN 10 MG TABLET PO SCH ×3 (09:10→20:32)
[2022-01-12] MEDS: FAMOTIDINE 20 MG TABLET PO SCH ×2 (09:10→20:32)
[2022-01-12] MEDS: DOCUSATE SODIUM 100 MG CAPSULE PO SCH ×2 (09:10→20:32)
[2022-01-12] MEDS: ENOXAPARIN SODIUM 40 MG/0.4 ML PF SYRINGE SQ SCH (09:10)
[2022-01-12] MEDS: INSULIN DEGLUDEC 200 UNIT/ML SQ SCH ×2 (10:06→20:41)
[2022-01-12 10:57] LABS: GLUCOMETER DEV NAME(LOC) 6S.1B; GLUCOSE,POINT OF CARE 154 MG/DL (70-110)
[2022-01-12 12:24] VITALS: BP 130/80
[2022-01-12] MEDS: CARVEDILOL 3.125 MG TABLET PO SCH ×2 (12:25→20:32)
[2022-01-12 13:06] LABS: GLUCOMETER DEV NAME(LOC) 6S.1B; GLUCOSE,POINT OF CARE 172 MG/DL (70-110)
[2022-01-12] MEDS: MAGNESIUM HYDROXIDE SUSPENSION 30 ML UDCUP PO PRN (15:36)
[2022-01-12] MEDS: VANCOMYCIN HCL 1.25 GM in DEXTROSE 5%-WATER 250 ML IV SCH (15:37)
[2022-01-12 15:41] VITALS: BP 117/72
[2022-01-12 19:51] LABS: GLUCOMETER DEV NAME(LOC) 6S.1B; GLUCOSE,POINT OF CARE 162 MG/DL (70-110)
[2022-01-12] MEDS: TraZODone HCL 100 MG TABLET PO SCH (20:32)
[2022-01-12 20:34] VITALS: BP 120/76
[2022-01-12 21:46] LABS: GLUCOMETER DEV NAME(LOC) 6N.1; GLUCOSE,POINT OF CARE 252 MG/DL (70-110)
[2022-01-13] MEDS: SODIUM CHLORIDE 0.9% 1,000 ML IV SCH ×3 (00:19→16:12)
[2022-01-13] MEDS: VANCOMYCIN HCL 1.25 GM in DEXTROSE 5%-WATER 250 ML IV SCH ×2 (00:19→08:27)
[2022-01-13 05:37] VITALS: BP 133/84
[2022-01-13] MEDS: INSULIN LISPRO 100 UNITS/ML SQ PRN ×4 (06:01→21:30)
[2022-01-13] MEDS: PIPERACILLIN/TAZO 3.375 GM/D5W 50 ML IV SCH ×3 (06:02→17:42)
[2022-01-13 07:01] LABS: GLUCOMETER DEV NAME(LOC) 6S.1B; GLUCOSE,POINT OF CARE 168 MG/DL (70-110)
[2022-01-13] MEDS: MORPHINE SULFATE 2 MG/ML SYRINGE IVP PRN ×3 (08:10→21:40)
[2022-01-13 08:16] VITALS: BP 133/92
[2022-01-13] MEDS: OXYGEN THERAPY IH SCH ×2 (08:26→21:35)
[2022-01-13] MEDS: PIOGLITAZONE HCL 30 MG TABLET PO SCH (08:27)
[2022-01-13] MEDS: CARVEDILOL 3.125 MG TABLET PO SCH ×2 (08:27→21:37)
[2022-01-13] MEDS: DOCUSATE SODIUM 100 MG CAPSULE PO SCH ×2 (08:27→21:36)
[2022-01-13] MEDS: BACLOFEN 10 MG TABLET PO SCH ×3 (08:27→21:36)
[2022-01-13] MEDS: GABAPENTIN 300 MG CAPSULE PO SCH ×3 (08:27→21:36)
[2022-01-13] MEDS: FAMOTIDINE 20 MG TABLET PO SCH ×2 (08:27→21:37)
[2022-01-13] MEDS: SULFAMETHOX/TRIMETH DS 800-160 MG/TABLET PO SCH ×2 (08:27→21:35)
[2022-01-13] MEDS: LevETIRAcetam 500 MG TABLET PO SCH ×2 (08:27→21:37)
[2022-01-13] MEDS: ENOXAPARIN SODIUM 40 MG/0.4 ML PF SYRINGE SQ SCH (08:27)
[2022-01-13] MEDS: INSULIN DEGLUDEC 200 UNIT/ML SQ SCH ×2 (08:28→21:33)
[2022-01-13] MEDS: HYDROCODONE/ACETAMINOPHEN 5-325 MG TABLET PO PRN ×2 (08:39→17:42)
[2022-01-13 09:37] LABS: ANION GAP 13 mmol/L (8-16); C-REACTIVE PROTEIN QUANT 9.91 mg/dL (0.00-0.30); CALCIUM, TOTAL 9.6 mg/dL (8.8-10.5); CARBON DIOXIDE 29 mmol/L (22-29); CHLORIDE 100 mmol/L (98-107); FERRITIN 629 ng/mL (26-388); GLOMERULAR FILTR. RATE CALC > 60 mL/min (>60); GLUCOSE,RANDOM 105 mg/dL (70-110); POTASSIUM 3.9 mmol/L (3.5-5.1); SODIUM SERUM 142 mmol/L (136-145); UREA NITROGEN, BLOOD 7 mg/dL (7-18)
[2022-01-13 12:06] LABS: GLUCOMETER DEV NAME(LOC) 6N.2; GLUCOSE,POINT OF CARE 105 MG/DL (70-110)
[2022-01-13 15:41] LABS: GLUCOMETER DEV NAME(LOC) 6N.1; GLUCOSE,POINT OF CARE 249 MG/DL (70-110)
[2022-01-13] MEDS ORDERED: VANCOMYCIN HCL 1.5 GM in DEXTROSE 5%-WATER 250 ML IV SCH (16:00)
[2022-01-13 16:57] VITALS: BP 139/94
[2022-01-13 18:16] LABS: GLUCOMETER DEV NAME(LOC) 6S.1B; GLUCOSE,POINT OF CARE 239 MG/DL (70-110)
[2022-01-13 20:00] VITALS: BP 128/71
[2022-01-13] MEDS: ACETAMINOPHEN 325 MG TABLET PO PRN (21:39)
[2022-01-13] MEDS: TraZODone HCL 100 MG TABLET PO SCH (21:42)
[2022-01-14] MEDS: PIPERACILLIN/TAZO 3.375 GM/D5W 50 ML IV SCH ×4 (00:01→21:02)
[2022-01-14 03:51] LABS: GLUCOMETER DEV NAME(LOC) 6N.1; GLUCOSE,POINT OF CARE 228 MG/DL (70-110)
[2022-01-14] MEDS: HYDROCODONE/ACETAMINOPHEN 5-325 MG TABLET PO PRN ×2 (04:06→21:13)
[2022-01-14 04:26] LABS: GLUCOMETER DEV NAME(LOC) 6S.1B; GLUCOSE,POINT OF CARE 131 MG/DL (70-110)
[2022-01-14 04:40] VITALS: BP 132/74
[2022-01-14] MEDS: INSULIN LISPRO 100 UNITS/ML SQ PRN ×4 (06:24→21:03)
[2022-01-14 07:41] LABS: GLUCOMETER DEV NAME(LOC) 6S.1B; GLUCOSE,POINT OF CARE 188 MG/DL (70-110)
[2022-01-14] MEDS: OXYGEN THERAPY IH SCH (08:00)
[2022-01-14 08:36] VITALS: BP 130/74
[2022-01-14 08:46] LABS: BASOPHILS % (AUTO) 0.8 % (0.0-2.0); EOSINOPHILS % (AUTO) 3.4 % (1.0-6.0); HEMATOCRIT 36.2 % (41-53); HEMOGLOBIN 12.1 g/dL (13.5-17.5); LYMPHOCYTES % (AUTO) 27.3 % (22.0-44.0); MEAN CORPUSCULAR HEMOGLOBIN 30.9 pg (26.0-34.0); MEAN CORPUSCULAR HGB CONC 33.4 G/dL (31.0-37.0); MEAN CORPUSCULAR VOLUME 93 fL (80-100); MONOCYTES # (AUTO) 1.4 K/uL (0.1-1.0); MONOCYTES % (AUTO) 12.9 % (2.0-9.0); NEUTROPHILS # (AUTO) 6.1 K/uL (1.8-7.7); NEUTROPHILS % (AUTO) 55.6 % (40.0-70.0); PLATELET COUNT (AUTO) 421 K/uL (150-450); RED BLOOD CELL COUNT(AUTO) 3.91 MIL/uL (4.50-5.90)
[2022-01-14] MEDS: ENOXAPARIN SODIUM 40 MG/0.4 ML PF SYRINGE SQ SCH (09:11)
[2022-01-14] MEDS: SULFAMETHOX/TRIMETH DS 800-160 MG/TABLET PO SCH ×2 (09:11→21:02)
[2022-01-14] MEDS: DOCUSATE SODIUM 100 MG CAPSULE PO SCH ×2 (09:11→21:02)
[2022-01-14] MEDS: BACLOFEN 10 MG TABLET PO SCH ×3 (09:12→21:02)
[2022-01-14] MEDS: LevETIRAcetam 500 MG TABLET PO SCH ×2 (09:12→21:02)
[2022-01-14] MEDS: CARVEDILOL 3.125 MG TABLET PO SCH ×2 (09:12→21:02)
[2022-01-14] MEDS: FAMOTIDINE 20 MG TABLET PO SCH ×2 (09:12→21:03)
[2022-01-14] MEDS: GABAPENTIN 300 MG CAPSULE PO SCH ×3 (09:12→21:03)
[2022-01-14] MEDS: SODIUM CHLORIDE 0.9% 1,000 ML IV SCH ×3 (09:13→17:28)
[2022-01-14] MEDS: PIOGLITAZONE HCL 30 MG TABLET PO SCH (09:16)
[2022-01-14 09:20] LABS: ALANINE AMINOTRANSFERASE 222 U/L (12-78); ALBUMIN 2.6 g/dL (3.4-5.0); ALKALINE PHOSPHATASE 249 U/L (46-116); ANION GAP 7 mmol/L (8-16); ASPARTATE AMINOTRANSFERASE 92 U/L (15-37); BILIRUBIN,TOTAL 0.4 mg/dL (0.1-1.0); C-REACTIVE PROTEIN QUANT 9.62 mg/dL (0.00-0.30); CALCIUM, TOTAL 9.6 mg/dL (8.8-10.5); CARBON DIOXIDE 30 mmol/L (22-29); CHLORIDE 103 mmol/L (98-107); CREATININE 0.77 mg/dL (0.60-1.30); FERRITIN 421 ng/mL (26-388); GLOMERULAR FILTR. RATE CALC > 60 mL/min (>60); GLUCOSE,RANDOM 140 mg/dL (70-110); POTASSIUM 4.2 mmol/L (3.5-5.1); SODIUM SERUM 140 mmol/L (136-145); TOTAL PROTEIN, SERUM 7.9 g/dL (6.4-8.2); UREA NITROGEN, BLOOD 5 mg/dL (7-18)
[2022-01-14] MEDS: INSULIN DEGLUDEC 200 UNIT/ML SQ SCH ×2 (09:23→21:03)
[2022-01-14] MEDS: MAGNESIUM HYDROXIDE SUSPENSION 30 ML UDCUP PO PRN (09:26)
[2022-01-14] MEDS: MORPHINE SULFATE 2 MG/ML SYRINGE IVP PRN ×2 (09:59→15:44)
[2022-01-14] MEDS ORDERED: LACTULOSE 20 GM/30 ML SOLUTION UDCUP PO PRN (10:15)
[2022-01-14] MEDS ORDERED: BISACODYL 5 MG EC TABLET PO PRN (10:15)
[2022-01-14 15:25] LABS: GLUCOMETER DEV NAME(LOC) 6N.2; GLUCOSE,POINT OF CARE 171 MG/DL (70-110)
[2022-01-14 16:41] VITALS: BP 111/75
[2022-01-14 17:07] LABS: GLUCOMETER DEV NAME(LOC) 6S.1B; GLUCOSE,POINT OF CARE 210 MG/DL (70-110)
[2022-01-14 21:00] VITALS: BP 124/76
[2022-01-14] MEDS: TraZODone HCL 100 MG TABLET PO SCH (21:02)
[2022-01-14 22:50] LABS: GLUCOMETER DEV NAME(LOC) 6N.1; GLUCOSE,POINT OF CARE 226 MG/DL (70-110)
[2022-01-15] MEDS: PIPERACILLIN/TAZO 3.375 GM/D5W 50 ML IV SCH ×5 (01:17→23:07)
[2022-01-15] MEDS: SODIUM CHLORIDE 0.9% 1,000 ML IV SCH ×3 (03:41→17:24)
[2022-01-15 04:46] VITALS: BP 118/78
[2022-01-15] MEDS: HYDROCODONE/ACETAMINOPHEN 5-325 MG TABLET PO PRN ×2 (05:46→21:49)
[2022-01-15] MEDS: INSULIN LISPRO 100 UNITS/ML SQ PRN ×3 (05:47→20:15)
[2022-01-15 07:52] LABS: ALANINE AMINOTRANSFERASE 177 U/L (12-78); ALBUMIN 2.6 g/dL (3.4-5.0); ALKALINE PHOSPHATASE 221 U/L (46-116); ANION GAP 11 mmol/L (8-16); ASPARTATE AMINOTRANSFERASE 47 U/L (15-37); BILIRUBIN,TOTAL 0.3 mg/dL (0.1-1.0); C-REACTIVE PROTEIN QUANT 5.79 mg/dL (0.00-0.30); CALCIUM, TOTAL 9.5 mg/dL (8.8-10.5); CARBON DIOXIDE 28 mmol/L (22-29); CHLORIDE 103 mmol/L (98-107); CREATININE 0.72 mg/dL (0.60-1.30); GLUCOSE,RANDOM 98 mg/dL (70-110); POTASSIUM 3.6 mmol/L (3.5-5.1); SODIUM SERUM 142 mmol/L (136-145); UREA NITROGEN, BLOOD 9 mg/dL (7-18)
[2022-01-15 08:00] LABS: GLOMERULAR FILTR. RATE CALC > 60 mL/min (>60)
[2022-01-15] MEDS: OXYGEN THERAPY IH SCH (08:00)
[2022-01-15 08:21] VITALS: BP 114/64
[2022-01-15] MEDS: CARVEDILOL 3.125 MG TABLET PO SCH ×2 (09:00→21:48)
[2022-01-15] MEDS: ENOXAPARIN SODIUM 40 MG/0.4 ML PF SYRINGE SQ SCH (09:00)
[2022-01-15] MEDS: PIOGLITAZONE HCL 30 MG TABLET PO SCH (09:00)
[2022-01-15] MEDS: GABAPENTIN 300 MG CAPSULE PO SCH ×3 (09:00→21:48)
[2022-01-15] MEDS: FAMOTIDINE 20 MG TABLET PO SCH ×2 (09:00→21:48)
[2022-01-15] MEDS: DOCUSATE SODIUM 100 MG CAPSULE PO SCH ×2 (09:00→21:48)
[2022-01-15] MEDS: SULFAMETHOX/TRIMETH DS 800-160 MG/TABLET PO SCH ×2 (09:00→21:48)
[2022-01-15] MEDS: LevETIRAcetam 500 MG TABLET PO SCH ×2 (09:01→21:48)
[2022-01-15] MEDS: BACLOFEN 10 MG TABLET PO SCH ×3 (09:01→21:48)
[2022-01-15 09:02] LABS: GLUCOMETER DEV NAME(LOC) 6N.1; GLUCOSE,POINT OF CARE 145 MG/DL (70-110)
[2022-01-15] MEDS: INSULIN DEGLUDEC 200 UNIT/ML SQ SCH ×2 (10:04→20:15)
[2022-01-15 16:23] VITALS: BP 111/68
[2022-01-15 19:36] VITALS: BP 124/81
[2022-01-15 19:56] LABS: GLUCOMETER DEV NAME(LOC) 6N.2; GLUCOSE,POINT OF CARE 186 MG/DL (70-110)
[2022-01-15 20:01] LABS: GLUCOMETER DEV NAME(LOC) 6N.1; GLUCOSE,POINT OF CARE 38 MG/DL (70-110)
[2022-01-15 20:01] LABS: GLUCOMETER DEV NAME(LOC) 6N.1; GLUCOSE,POINT OF CARE 167 MG/DL (70-110)
[2022-01-15 20:01] LABS: GLUCOMETER DEV NAME(LOC) 6N.1; GLUCOSE,POINT OF CARE 189 MG/DL (70-110)
[2022-01-15] MEDS: TraZODone HCL 100 MG TABLET PO SCH (21:48)
[2022-01-15 22:06] LABS: GLUCOMETER DEV NAME(LOC) 6S.1B; GLUCOSE,POINT OF CARE 325 MG/DL (70-110)
[2022-01-16 00:31] LABS: GLUCOMETER DEV NAME(LOC) 6N.2; GLUCOSE,POINT OF CARE 233 MG/DL (70-110)
[2022-01-16] MEDS: SODIUM CHLORIDE 0.9% 1,000 ML IV SCH ×3 (01:43→16:54)
[2022-01-16] MEDS: HYDROCODONE/ACETAMINOPHEN 5-325 MG TABLET PO PRN ×3 (02:26→17:36)
[2022-01-16 03:52] VITALS: BP 112/64
[2022-01-16] MEDS: PIPERACILLIN/TAZO 3.375 GM/D5W 50 ML IV SCH ×3 (06:00→17:34)
[2022-01-16] MEDS: INSULIN LISPRO 100 UNITS/ML SQ PRN ×3 (06:15→17:06)
[2022-01-16 07:06] LABS: GLUCOMETER DEV NAME(LOC) 6S.1B; GLUCOSE,POINT OF CARE 144 MG/DL (70-110)
[2022-01-16 08:00] VITALS: BP 114/62
[2022-01-16] MEDS: OXYGEN THERAPY IH SCH ×2 (08:00→20:00)
[2022-01-16] MEDS: FAMOTIDINE 20 MG TABLET PO SCH ×2 (10:15→21:03)
[2022-01-16] MEDS: SULFAMETHOX/TRIMETH DS 800-160 MG/TABLET PO SCH ×2 (10:15→21:02)
[2022-01-16] MEDS: DOCUSATE SODIUM 100 MG CAPSULE PO SCH ×2 (10:15→21:02)
[2022-01-16] MEDS: LevETIRAcetam 500 MG TABLET PO SCH ×2 (10:15→21:02)
[2022-01-16] MEDS: INSULIN DEGLUDEC 200 UNIT/ML SQ SCH (10:15)
[2022-01-16] MEDS: CARVEDILOL 3.125 MG TABLET PO SCH ×2 (10:16→21:02)
[2022-01-16] MEDS: PIOGLITAZONE HCL 30 MG TABLET PO SCH (10:16)
[2022-01-16] MEDS: BACLOFEN 10 MG TABLET PO SCH ×3 (10:16→21:03)
[2022-01-16] MEDS: VITAMINS A & D 113 GM OINTMENT TP SCH (10:17)
[2022-01-16] MEDS: ENOXAPARIN SODIUM 40 MG/0.4 ML PF SYRINGE SQ SCH (10:19)
[2022-01-16] MEDS: GABAPENTIN 300 MG CAPSULE PO SCH ×3 (10:19→21:02)
[2022-01-16] MEDS: MORPHINE SULFATE 2 MG/ML SYRINGE IVP PRN (11:44)
[2022-01-16 16:06] VITALS: BP 118/66
[2022-01-16 19:50] VITALS: BP 122/63
[2022-01-16 20:01] LABS: GLUCOMETER DEV NAME(LOC) 6S.1B; GLUCOSE,POINT OF CARE 239 MG/DL (70-110)
[2022-01-16 20:01] LABS: GLUCOMETER DEV NAME(LOC) 6S.1B; GLUCOSE,POINT OF CARE 330 MG/DL (70-110)
[2022-01-16 20:02] LABS: GLUCOMETER DEV NAME(LOC) 6S.1B; GLUCOSE,POINT OF CARE 245 MG/DL (70-110)
[2022-01-16] MEDS: TraZODone HCL 100 MG TABLET PO SCH (21:03)
[2022-01-16 23:40] LABS: GLUCOMETER DEV NAME(LOC) 6N.2; GLUCOSE,POINT OF CARE 208 MG/DL (70-110)
[2022-01-17] MEDS: SODIUM CHLORIDE 0.9% 1,000 ML IV SCH ×4 (00:20→23:33)
[2022-01-17] MEDS: PIPERACILLIN/TAZO 3.375 GM/D5W 50 ML IV SCH ×5 (00:20→23:33)
[2022-01-17 03:58] VITALS: BP 126/70
[2022-01-17 06:41] LABS: GLUCOMETER DEV NAME(LOC) 6N.2; GLUCOSE,POINT OF CARE 92 MG/DL (70-110)
[2022-01-17 07:26] LABS: ALANINE AMINOTRANSFERASE 165 U/L (12-78); ALBUMIN 2.8 g/dL (3.4-5.0); ALKALINE PHOSPHATASE 252 U/L (46-116); ANION GAP 6 mmol/L (8-16); ASPARTATE AMINOTRANSFERASE 50 U/L (15-37); BILIRUBIN,TOTAL 0.3 mg/dL (0.1-1.0); C-REACTIVE PROTEIN QUANT 1.93 mg/dL (0.00-0.30); CALCIUM, TOTAL 9.5 mg/dL (8.8-10.5); CARBON DIOXIDE 30 mmol/L (22-29); CHLORIDE 102 mmol/L (98-107); GLUCOSE,RANDOM 110 mg/dL (70-110); POTASSIUM 3.9 mmol/L (3.5-5.1); SODIUM SERUM 138 mmol/L (136-145); TOTAL PROTEIN, SERUM 8.3 g/dL (6.4-8.2); UREA NITROGEN, BLOOD 8 mg/dL (7-18)
[2022-01-17 07:30] VITALS: BP 145/82
[2022-01-17 07:37] LABS: GLOMERULAR FILTR. RATE CALC > 60 mL/min (>60)
[2022-01-17] MEDS: OXYGEN THERAPY IH SCH ×2 (08:00→20:00)
[2022-01-17] MEDS: SULFAMETHOX/TRIMETH DS 800-160 MG/TABLET PO SCH ×2 (08:43→21:11)
[2022-01-17] MEDS: ENOXAPARIN SODIUM 40 MG/0.4 ML PF SYRINGE SQ SCH (08:43)
[2022-01-17] MEDS: DOCUSATE SODIUM 100 MG CAPSULE PO SCH ×2 (08:44→21:00)
[2022-01-17] MEDS: FAMOTIDINE 20 MG TABLET PO SCH ×2 (08:44→21:14)
[2022-01-17] MEDS: GABAPENTIN 300 MG CAPSULE PO SCH ×3 (08:44→21:14)
[2022-01-17] MEDS: BACLOFEN 10 MG TABLET PO SCH ×3 (08:44→21:13)
[2022-01-17] MEDS: PIOGLITAZONE HCL 30 MG TABLET PO SCH (08:45)
[2022-01-17] MEDS: CARVEDILOL 3.125 MG TABLET PO SCH ×2 (08:45→21:12)
[2022-01-17] MEDS: LevETIRAcetam 500 MG TABLET PO SCH ×2 (08:45→21:12)
[2022-01-17] MEDS: INSULIN DEGLUDEC 200 UNIT/ML SQ SCH ×2 (09:00→21:38)
[2022-01-17 09:11] LABS: GLUCOMETER DEV NAME(LOC) 6S.1B; GLUCOSE,POINT OF CARE 95 MG/DL (70-110)
[2022-01-17 09:11] LABS: GLUCOMETER DEV NAME(LOC) 6S.1B; GLUCOSE,POINT OF CARE 93 MG/DL (70-110)
[2022-01-17] MEDS ORDERED: ENOX40SY14 SQ (09:27)
[2022-01-17] MEDS ORDERED: BACTDSB PO (09:27)
[2022-01-17 09:41] LABS: BASOPHILS % (AUTO) 1.2 % (0.0-2.0); EOSINOPHILS % (AUTO) 5.4 % (1.0-6.0); HEMATOCRIT 39.8 % (41-53); HEMOGLOBIN 13.1 g/dL (13.5-17.5); LYMPHOCYTES # (AUTO) 2.1 K/uL (1.0-4.8); LYMPHOCYTES % (AUTO) 25.9 % (22.0-44.0); MEAN CORPUSCULAR HEMOGLOBIN 30.6 pg (26.0-34.0); MEAN CORPUSCULAR HGB CONC 32.9 G/dL (31.0-37.0); MEAN CORPUSCULAR VOLUME 93 fL (80-100); MONOCYTES # (AUTO) 1.3 K/uL (0.1-1.0); NEUTROPHILS # (AUTO) 4.2 K/uL (1.8-7.7); NEUTROPHILS % (AUTO) 51.5 % (40.0-70.0); PLATELET COUNT (AUTO) 619 K/uL (150-450); RED BLOOD CELL COUNT(AUTO) 4.28 MIL/uL (4.50-5.90); RED CELL DISTRIBUTION WIDTH 14.8 % (11.5-14.5)
[2022-01-17] MEDS: INSULIN LISPRO 100 UNITS/ML SQ PRN ×3 (12:42→21:40)
[2022-01-17 12:51] LABS: GLUCOMETER DEV NAME(LOC) 6S.1B; GLUCOSE,POINT OF CARE 131 MG/DL (70-110)
[2022-01-17 14:00] VITALS: BP 118/69
[2022-01-17] MEDS: MORPHINE SULFATE 2 MG/ML SYRINGE IVP PRN (17:10)
[2022-01-17] MEDS: VITAMINS A & D 113 GM OINTMENT TP SCH (17:19)
[2022-01-17] MEDS ORDERED: SODIUM CHLORIDE 0.9% 250 ML IV ONE (18:15)
[2022-01-17 19:29] VITALS: BP 128/69
[2022-01-17 21:01] LABS: GLUCOMETER DEV NAME(LOC) 6N.2; GLUCOSE,POINT OF CARE 134 MG/DL (70-110)
[2022-01-17] MEDS: TraZODone HCL 100 MG TABLET PO SCH (21:12)
[2022-01-17] MEDS: HYDROCODONE/ACETAMINOPHEN 5-325 MG TABLET PO PRN (21:32)
[2022-01-17 22:36] LABS: GLUCOMETER DEV NAME(LOC) 6S.1B; GLUCOSE,POINT OF CARE 252 MG/DL (70-110)
[2022-01-17 22:36] LABS: GLUCOMETER DEV NAME(LOC) 6S.1B; GLUCOSE,POINT OF CARE 234 MG/DL (70-110)
[2022-01-18 05:22] VITALS: BP 104/69
[2022-01-18] MEDS: PIPERACILLIN/TAZO 3.375 GM/D5W 50 ML IV SCH ×2 (05:26→11:27)
[2022-01-18] MEDS: OXYGEN THERAPY IH SCH (08:00)
[2022-01-18 08:01] LABS: GLUCOMETER DEV NAME(LOC) 6N.2; GLUCOSE,POINT OF CARE 116 MG/DL (70-110)
[2022-01-18] MEDS: CARVEDILOL 3.125 MG TABLET PO SCH (09:00)
[2022-01-18] MEDS: BACLOFEN 10 MG TABLET PO SCH ×2 (09:39→16:49)
[2022-01-18] MEDS: GABAPENTIN 300 MG CAPSULE PO SCH ×2 (09:39→16:49)
[2022-01-18] MEDS: SODIUM CHLORIDE 0.9% 1,000 ML IV SCH (09:39)
[2022-01-18] MEDS: LevETIRAcetam 500 MG TABLET PO SCH (09:39)
[2022-01-18] MEDS: FAMOTIDINE 20 MG TABLET PO SCH (09:39)
[2022-01-18] MEDS: DOCUSATE SODIUM 100 MG CAPSULE PO SCH (09:39)
[2022-01-18] MEDS: ENOXAPARIN SODIUM 40 MG/0.4 ML PF SYRINGE SQ SCH (09:39)
[2022-01-18] MEDS: INSULIN DEGLUDEC 200 UNIT/ML SQ SCH (09:41)
[2022-01-18] MEDS: PIOGLITAZONE HCL 30 MG TABLET PO SCH (09:43)
[2022-01-18] MEDS: VITAMINS A & D 113 GM OINTMENT TP SCH (09:43)
[2022-01-18] MEDS: SULFAMETHOX/TRIMETH DS 800-160 MG/TABLET PO SCH (09:43)
[2022-01-18 10:11] LABS: GLUCOMETER DEV NAME(LOC) 6S.1B; GLUCOSE,POINT OF CARE 98 MG/DL (70-110)
[2022-01-18] MEDS: INSULIN LISPRO 100 UNITS/ML SQ PRN (11:30)
[2022-01-18 12:16] LABS: GLUCOMETER DEV NAME(LOC) 6N.2; GLUCOSE,POINT OF CARE 259 MG/DL (70-110)
[2022-01-18] MEDS: HYDROCODONE/ACETAMINOPHEN 5-325 MG TABLET PO PRN (13:25)
[2022-01-18 15:38] VITALS: BP 114/60
== END 2022-01-18 17:10 | disposition home health service (06) | DRG 853 ==
LOC: 6S 01-09 05:32
PROVIDERS: ADMIT Orthopaedic Surgery; ATTEND Orthopaedic Surgery
PROC: 0SGH04Z Fusion of Right Tarsal Joint with Internal Fixation Device, Open Approach (ICD-10-PCS; principal; 2022-01-10)
PROC: 0L8N0ZZ Division of Right Lower Leg Tendon, Open Approach (ICD-10-PCS; 2022-01-10)
PROC: 0LNN0ZZ Release Right Lower Leg Tendon, Open Approach (ICD-10-PCS; 2022-01-10)
PROC: 0KNS0ZZ Release Right Lower Leg Muscle, Open Approach (ICD-10-PCS; 2022-01-10)
PROC: 0SGM04Z Fusion of Right Metatarsal-Phalangeal Joint with Internal Fixation Device, Open Approach (ICD-10-PCS; 2022-01-10)
PROC: 0SGP04Z Fusion of Right Toe Phalangeal Joint with Internal Fixation Device, Open Approach (ICD-10-PCS; 2022-01-10)
DX: A41.9 Sepsis, unspecified organism (principal); G82.50 Quadriplegia, unspecified; J15.9 Unspecified bacterial pneumonia; G82.20 Paraplegia, unspecified; M21.6X1 Other acquired deformities of right foot; M21.961 Unspecified acquired deformity of right lower leg; E11.9 Type 2 diabetes mellitus without complications; Z20.822 Contact with and (suspected) exposure to COVID-19; G40.909 Epilepsy, unspecified, not intractable, without status epilepticus; K59.00 Constipation, unspecified; Z87.820 Personal history of traumatic brain injury; Z99.3 Dependence on wheelchair
CPT/HCPCS: 71045; 74018; 80048; 80053; 80076; 80202; 81001; 81003; 82728; 82947; 82962; 84145; 85025; 85032; 85379; 85610; 85730; 86140; 87040; 87081; 87804; 93970; 97110; 97162; 97166; 97530; 97535; C9290; J0690; J1170; J1650; J1815; J2250; J2270; J2405; J2543; J2704; J3010; J3370; J3490; J7030; J7040; J7050; J7060; J7120; Q9967; 36415-L1; 36415-TC; C1716; U0003; Z7610